=== PATIENT | female | born 1960 | race Caucasian/White ===

== ENCOUNTER 2017-08-15 08:39 | Outpatient (CLI) | payer BC | END 2017-08-15 08:40 | disposition home or self-care (01) | LOC: BICMAMMO 08:39 | PROVIDERS: ATTEND Obstetrics & Gynecology Gynecology | DX: Z12.31 Encounter for screening mammogram for malignant neoplasm of breast (principal); R92.1 Mammographic calcification found on diagnostic imaging of breast; Z80.3 Family history of malignant neoplasm of breast | CPT/HCPCS: 77063; 77067 ==

== ENCOUNTER 2017-12-04 08:41 | Outpatient (CLI) | payer BC ==
--- NOTE | 2017-12-04 11:46 | BD ---
DEXA BONE DENSITY STUDY: Date: 12/04/17 HISTORY: Postmenopausal. FINDINGS: Lumbar Spine: BMD (g/cm2) L1 0.936 T-Score: -0.5 L2 1.043 T-Score: +0.1 L3 1.101 T-Score: +0.2 L4 1.059 T-Score: +0.0 L1-L4 1.040 T-Score: -0.1 Femoral Neck: 0.786 T-Score: -0.6 Total Femur: 0.979 T-Score: +0.3 IMPRESSION: 1. Normal bone mineral density of the lumbar spine and left femoral neck. 2. The 10 year fracture risk for major osteoporotic fracture is 6,5% and for a hip fracture is 0.2%. Fracture probabilities calculated for an untreated patient. POS: SANJAY
== END 2017-12-04 08:42 | disposition home or self-care (01) ==
LOC: BICMAMMO 08:41
PROVIDERS: ATTEND Internal Medicine
DX: Z13.820 Encounter for screening for osteoporosis (principal)
CPT/HCPCS: 77080

== ENCOUNTER 2018-02-07 12:18 | Outpatient (CLI) | payer BC ==
--- NOTE | 2018-02-07 15:35 | ULT ---
THYROID ULTRASOUND: 02/07/18 COMPARISON: None. HISTORY: Thyroid mass. TECHNIQUE: Multiplanar cantu scale sonographic imaging of the thyroid gland obtained. FINDINGS: Thyroid isthmus measures 2 mm in AP dimension. Right lobe measures 1.0 x 4.8 x 1.8 cm and left lobe m easures 2.4 x 5.0 x 3.3 cm. Within the right lobe of the thyroid gland there is a 7 x 8 x 5 mm nonspe cific hypoechoic nodule. Within the superior medial aspect of the left lobe of the thyroid gland ther e is a heterogeneously hypoechoic primarily cystic nodule measuring approximately 1.6 x 0.6 x 1.3 cm. There is a dominant lesion within the mid and inferior aspect of the left lobe of the thyroid gland w hich is complex, primarily cystic, with internal nodular components and septations. This lesion measu res 3.9 x 3.6 x 2.5 cm. IMPRESSION: Dominant complex cystic mass associated with the mid/inferior aspect of the left lobe of the thyroid gland measuring up to 3.9 cm. This is a TIRADS 4 lesion and given its size, ultrasound guided fine n eedle aspiration is advised. POS: SANJAY
== END 2018-02-07 12:19 | disposition home or self-care (01) ==
LOC: BICULT 12:18
PROVIDERS: ATTEND Surgery
DX: E04.1 Nontoxic single thyroid nodule (principal)
CPT/HCPCS: 76536

== ENCOUNTER 2018-02-26 12:06 | Day surgery (SDC) | payer BC ==
[2018-02-23 10:47] VITALS: BMI 29.3
[2018-02-26] MEDS ORDERED: Sodium Bicarbonate 2.5 MEQ/5 ML VIAL ONE (12:25)
[2018-02-26] MEDS ORDERED: Lidocaine 1% PF 5 ML VIAL ONE (12:26)
[2018-02-26 14:21] VITALS: BP 138/79; TEMP 97.9
--- NOTE | 2018-02-26 14:41 | ULT ---
ULTRASOUND GUIDED THYROID NODULE FNA: INDICATION: Complete cystic nodule in the left thyroid lobe. PROCEDURE: Informed consent was obtained. The patient was escorted to the procedural suite. The left thyroid n odule of interest was localized. Standard sterile prepping and draping was performed and topical ane sthesia with buffered 1% Lidocaine was achieved; 25 gauge needles were then advanced into the cystic lesion of interest. Opaque, turbid dark brown liquid, 12 cc total, was aspirated from the cyst and p rovided to pathology department for further analysis. All devices were removed. No procedural compl ications. Imaging was stored for documentation. Postprocedural imaging revealed no evidence of hillary dolores or other complication. IMPRESSION: Technically successful fine needle aspiration of a complex cystic left thyroid lobe nodule. Patholog y results are pending. POS: SANJAY
== END 2018-02-26 13:45 | disposition home or self-care (01) ==
LOC: ULT 12:06
PROVIDERS: ATTEND Surgery
PROC: 0G9G3ZX Drainage of Left Thyroid Gland Lobe, Percutaneous Approach, Diagnostic (ICD-10-PCS; principal; 2018-02-26)
DX: E04.1 Nontoxic single thyroid nodule (principal); R22.32 Localized swelling, mass and lump, left upper limb; F32.9 Major depressive disorder, single episode, unspecified; F41.9 Anxiety disorder, unspecified; Z79.82 Long term (current) use of aspirin; Z79.899 Other long term (current) drug therapy; Z88.2 Allergy status to sulfonamides; Z88.8 Allergy status to other drugs, medicaments and biological substances
CPT/HCPCS: 60100; 76942; 88173; 88305; J2001

== ENCOUNTER 2018-08-16 07:51 | Outpatient (CLI) | payer BC ==
--- NOTE | 2018-08-16 09:55 | MMO ---
Bilateral MAMMO Bilat Screen [facility]. CLINICAL HISTORY: Patient is 58 years old and is seen for screening. The patient has the following family history of breast cancer: sister, at age 36. The patient has no personal history of cancer. VIEWS: The views performed were: bilateral craniocaudal with tomosynthesis and bilateral mediolateral oblique with tomosynthesis. FILMS COMPARED: The present examination has been compared to prior imaging studies performed at [facility] on 07/15/2014, 07/17/2015, 07/29/2016 and 08/15/2017. MAMMOGRAM FINDINGS: There are scattered fibroglandular densities. Benign calcifications are noted bilaterally. There are no suspicious masses, suspicious calcifications, or new areas of architectural distortion. IMPRESSION: THERE IS NO MAMMOGRAPHIC EVIDENCE OF MALIGNANCY. A ROUTINE FOLLOW-UP MAMMOGRAM IN 1 YEAR IS RECOMMENDED. THE RESULTS OF THIS EXAM WERE SENT TO THE PATIENT. ACR BI-RADS Category 2 - Benign finding MAMMOGRAPHY NOTE: 1. A negative mammogram report should not delay a biopsy if a dominant of clinically suspicious mass is present. 2. Approximately 10% to 15% of breast cancers are not detected by mammography. 3. Adenosis and dense breasts may obscure an underlying neoplasm.
== END 2018-08-16 07:52 | disposition home or self-care (01) ==
LOC: BICMAMMO 07:51
PROVIDERS: ATTEND Obstetrics & Gynecology Gynecology
DX: Z12.31 Encounter for screening mammogram for malignant neoplasm of breast (principal); Z80.3 Family history of malignant neoplasm of breast
CPT/HCPCS: 77063; 77067

== ENCOUNTER 2019-08-19 08:31 | Outpatient (CLI) | payer BC ==
--- NOTE | 2019-08-19 09:15 | MMO ---
Bilateral MAMMO Bilat Screen [facility]. CLINICAL HISTORY: Patient is 59 years old and is seen for screening. The patient has the following family history of breast cancer: sister, at age 36. The patient has no personal history of cancer. VIEWS: The views performed were: bilateral craniocaudal with tomosynthesis and bilateral mediolateral oblique with tomosynthesis. FILMS COMPARED: The present examination has been compared to prior imaging studies performed at [facility] on 07/17/2015, 07/29/2016, 08/15/2017 and 08/16/2018. This study has been interpreted with the assistance of computer-aided detection. MAMMOGRAM FINDINGS: There are scattered fibroglandular densities. There are stable benign appearing calcifications seen in both breasts. Nodularity is stable. There are no suspicious masses, suspicious calcifications, or new areas of architectural distortion. IMPRESSION: THERE IS NO MAMMOGRAPHIC EVIDENCE OF MALIGNANCY. A ROUTINE FOLLOW-UP MAMMOGRAM IN 1 YEAR IS RECOMMENDED. THE RESULTS OF THIS EXAM WERE SENT TO THE PATIENT. ACR BI-RADS Category 2 - Benign finding MAMMOGRAPHY NOTE: 1. A negative mammogram report should not delay a biopsy if a dominant of clinically suspicious mass is present. 2. Approximately 10% to 15% of breast cancers are not detected by mammography. 3. Adenosis and dense breasts may obscure an underlying neoplasm. Reported by: ANTONIO GARCIA MD Electonically Signed: [id number]
== END 2019-08-19 08:32 | disposition home or self-care (01) ==
LOC: BICMAMMO 08:31
PROVIDERS: ATTEND Obstetrics & Gynecology Gynecology
DX: Z12.31 Encounter for screening mammogram for malignant neoplasm of breast (principal); Z80.3 Family history of malignant neoplasm of breast
CPT/HCPCS: 77063; 77067

== ENCOUNTER 2020-08-19 12:57 | Outpatient (CLI) | payer BC | END 2020-08-19 12:58 | disposition home or self-care (01) | LOC: BICMAMMO 12:57 | PROVIDERS: ATTEND Obstetrics & Gynecology Gynecology | DX: Z12.31 Encounter for screening mammogram for malignant neoplasm of breast (principal); Z80.3 Family history of malignant neoplasm of breast | CPT/HCPCS: 77063; 77067 ==

== ENCOUNTER 2021-08-24 08:18 | Outpatient (CLI) | payer BC | END 2021-08-24 08:19 | disposition home or self-care (01) | LOC: BICMAMMO 08:18 | PROVIDERS: ATTEND Obstetrics & Gynecology Gynecology | DX: Z12.31 Encounter for screening mammogram for malignant neoplasm of breast (principal); Z80.3 Family history of malignant neoplasm of breast | CPT/HCPCS: 77063; 77067 ==

== ENCOUNTER 2022-08-26 10:05 | Outpatient (CLI) | payer BC | END 2022-08-26 10:06 | disposition home or self-care (01) | LOC: BICMAMMO 10:05 | PROVIDERS: ATTEND Obstetrics & Gynecology Gynecology | DX: Z12.31 Encounter for screening mammogram for malignant neoplasm of breast (principal); Z80.3 Family history of malignant neoplasm of breast | CPT/HCPCS: 77063; 77067 ==